=== PATIENT | male | born 1950 | race Caucasian/White ===

== ENCOUNTER 2016-05-26 07:35 | Day surgery (SDC) | payer OTHER ==
[2016-05-25 09:34] LABS: HEMATOCRIT 42.9 % (42.0-52.0); HEMOGLOBIN 14.6 g/dL (14.0-18.0); MCH 30.1 PG (27-31); MCV 88.5 FL (81-99); MPV 9.5 FL (7.4-10.4); RBC 4.85 XMIL (4.7-6.1)
[2016-05-25 09:54] LABS: HEMOGLOBIN A1C 6.8 % (4.8-6.0)
[2016-05-25 09:55] LABS: AGAP 13; BUN 16 mg/dL (8-22); CALCIUM 9.4 mg/dL (8.8-10.2); CHLORIDE 98 mmol/L (98-107); COSMO 278; POTASSIUM 4.6 mmol/L (3.5-5.1); SODIUM 137 mmol/L (136-145); TCO2 26 mmol/L (25-35)
[2016-05-26] MEDS ORDERED: KEFZOL 1 GM/D5W 50 ML ONE (07:49)
[2016-05-26] MEDS ORDERED: LR 1,000 ML ONE ×2 (07:49→11:11)
[2016-05-26] MEDS ORDERED: PEPCID ONE (08:03)
[2016-05-26] MEDS ORDERED: LOPRESSOR ONE (08:03)
[2016-05-26] MEDS ORDERED: DIPRIVAN 1% ONE (11:06)
[2016-05-26] MEDS ORDERED: VERSED ONE (11:06)
[2016-05-26] MEDS ORDERED: ZOFRAN ONE (11:11)
[2016-05-26] MEDS ORDERED: XYLOCAINE-MPF 2% ONE (11:11)
[2016-05-26] MEDS ORDERED: DECADRON ONE (11:11)
[2016-05-26] MEDS ORDERED: DILAUDID ONE (11:17)
--- NOTE | 2016-05-26 11:22 | OPERATIVE NOTE ---
PROCEDURE DATE: 05/26/2016 PREOPERATIVE DIAGNOSIS: Chronic open wound, upper right back. POSTOPERATIVE DIAGNOSIS: Chronic open wound, upper right back. PROCEDURE PERFORMED: Debridement of skin, subcutaneous tissue, and muscle, 9 cm in length, chronic open wound, with secondary closure. SURGEON: Sophia Carmichael MD ANESTHESIA: General. ESTIMATED BLOOD LOSS: 200 mL. DRAINS: None. INDICATIONS: Mr. Ralph Nunes is a 66-year-old white male diabetic, patient of Dr. Venkat Germain, who presented to my office with soft tissue infection and, as an outpatient, we made a transverse incision in his upper right back to drain the infection. I have seen him on a regular basis for the last 4-6 weeks but this wound has become a chronic open wound with increasing drainage and we felt that he had an infected or inflammatory rind or abscess cavity that would have to be debrided to have this wound heal. FINDINGS: He had an inflammatory rind within this chronic open wound, which we debrided away and closed the wounds secondarily. DESCRIPTION OF PROCEDURE: The patient was brought to the operating room, placed supine, received general anesthesia, and was intubated. Then, we placed him in the left lateral decubitus position and his upper right back was prepped and draped within a sterile field. We had to open the incision wider using a scalpel. It measured 9-10 cm in length. We then excised the inflammatory rind of tissue off the underlying back muscle using a 15 blade scalpel and cautery. We also removed it off the subcutaneous tissue but we also used a large curette to scrape any ongoing inflammation from not only the base of the wound but also involving the subcutaneous tissue. We circumferentially debrided this inflammatory rind away from the wound and, therefore, removed the abscess cavity sharply and with cautery and also with a curette. This caused bleeding because of the inflammation and we controlled bleeding using cautery. We then used an orthopedic rotary furnace operator and 3 L of fluid to thoroughly irrigate our wound. I closed it loosely with 2 simple #1 Prolene stitches to bring the skin together. I then packed between these sutures with 1 inch iodoform gauze so that the wound could drain and dry dressings were applied. Plans are for him to be followed up closely in our outpatient offices to follow his wound healing. This was a bloody procedure and we felt we lost between 150 and 200 mL of blood. Plans are to discharge him home under the care of his .
[2016-05-26 12:41] VITALS: BP 110/73
== END 2016-05-26 12:20 | disposition home or self-care (01) ==
LOC: OPS 07:35
PROVIDERS: ATTEND Surgery
DX: L02.212 Cutaneous abscess of back [any part, except buttock and flank] (principal); E11.9 Type 2 diabetes mellitus without complications; I10 Essential (primary) hypertension; Z86.73 Personal history of transient ischemic attack (TIA), and cerebral infarction without residual deficits; Z23 Encounter for immunization
CPT/HCPCS: 80048; 82948; 83036; 85027; 88304; J0690; J1100; J1170; J2250; J2405; J7120